=== PATIENT | female | born 1995 | race Hispanic/Latino ===

== ENCOUNTER 2018-06-08 04:01 | Observation (INO) | payer BC ==
[2018-06-08] MEDS ORDERED: MORPHINE 4 MG/ML SYR ONE (04:50)
[2018-06-08] MEDS ORDERED: ONDANSETRON 4 MG/2 ML VIAL ONE ×2 (04:51→12:15)
[2018-06-08] MEDS ORDERED: NA CHLORIDE 0.9% 1,000 ML ONE (04:51)
[2018-06-08 05:13] LABS: Absolute Lymphocytes (CBC) 3.6 K/uL (0.7-4.9); Absolute Monocytes 0.8 K/uL (0.1-1.3); Absolute Neutrophil 8.9 K/uL (1.8-8.0); Basophils % 0.4 % (0-1.3); Eosinophils % 1.8 % (0-4.4); Hematocrit 42.1 % (36.0-45.0); Lymphocytes % 26.5 % (15.3-44.8); Monocytes % 6.2 % (3.3-12.3); RBC Red Blood Cell Count 4.85 M/uL (3.86-4.86)
[2018-06-08 05:23] LABS: ALT/SGPT 18 U/L (12-78); AST/SGOT 10 U/L (15-37); Albumin 3.7 g/dL (3.4-5.0); Alkaline Phosphatase 58 U/L (45-117); BUN Blood Urea Nitrogen 14 mg/dL (7-18); Bicarbonate 27 mmol/L (21-32); Bilirubin Direct 0.1 mg/dL (0-0.2); Bilirubin Total 0.4 mg/dL (0.2-1.0); Glucose Level 102 mg/dL (74-106); Lipase 205 U/L (73-393); Potassium 3.5 mmol/L (3.5-5.1); Protein, Total 7.4 g/dL (6.4-8.2); Sodium Level 141 mmol/L (136-145)
--- NOTE | 2018-06-08 06:05 | ER ---
Nurse's Notes [facility] Name: Mia Jauregui Age: 22 yrs Sex: Female : 1995 Arrival Date: 06/08/2018 Time: 04:01 Bed 6 Private MD: Diagnosis: Acute right upper quadrant pain. Leukocytosis Presentation: 06/08 04:13 Presenting complaint: Patient states: "I got a pain in my back that woke me up about an lp1 hour ago"; Patient states pain to epigastric area with radiation to back, with nausea; Denies fever, vomiting, diarrhea. Transition of care: patient was not received from another setting of care. Onset of symptoms was June 08, 2018 at 03:00. Risk Assessment: Do you want to hurt yourself or someone else? Patient reports no desire to harm self or others. Initial Sepsis Screen: Does the patient meet any 2 criteria? No. Patient's initial sepsis screen is negative. Does the patient have a suspected source of infection? No. Patient's initial sepsis screen is negative. Care prior to arrival: None. 04:13 Method Of Arrival: Ambulatory lp1 04:13 Acuity: SHENA 3 lp1 HEALTH CARE MARKETING MANAGER: 04:17 LMP 05/04/2018 lp1 Historical: - Allergies: 04:20 Iodine; lp1 04:20 Ceclor; lp1 04:21 IV contrast; lp1 - Home Meds: 04:20 phentermine oral oral [Active]; lp1 - PMHx: 04:20 None; lp1 - PSHx: 04:20 Tonsillectomy; lp1 - Immunization history:: Adult Immunizations up to date. - Social history:: Smoking status: Patient uses tobacco products, denies chronic smoking, but will smoke occasionally. - Ebola Screening: : No symptoms or risks identified at this time. Screenin:20 Abuse screen: Denies threats or abuse. Denies injuries from another. Nutritional ed1 screening: No deficits noted. Tuberculosis screening: No symptoms or risk factors identified. Fall Risk None identified. Assessment: 04:20 General: Appears uncomfortable, Behavior is calm, cooperative. Pain: Complains of pain ed1 in epigastric area Pain radiates to back Pain currently is 8 out of 10 on a pain scale. Quality of pain is described as sharp, Pain began 2 hours ago. Is episodic, lasting a few minutes. Neuro: Level of Consciousness is awake, alert, obeys commands, Oriented to person, place, time, situation, Cafeteria Manager are equal bilaterally Moves all extremities. Full function Gait is steady, Speech is normal. Cardiovascular: Denies chest pain, Heart tones S1 S2 present. Respiratory: Airway is patent Respiratory effort is even, unlabored, Respiratory pattern is regular, symmetrical, Breath sounds are clear bilaterally. GI: Abdomen is non-distended, Bowel sounds present X 4 quads. Abd is soft and non tender X 4 quads. Reports upper abdominal pain, nausea. : No signs and/or symptoms were reported regarding the genitourinary system. EENT: No signs and/or symptoms were reported regarding the EENT system. Derm: Skin is intact, is healthy with good turgor, Skin is dry, Skin is normal, Skin temperature is warm. Musculoskeletal: Circulation, motion, and sensation intact. 05:39 Reassessment: Patient appears in no apparent distress at this time. Patient and/or ed1 family updated on plan of care and expected duration. Pain level reassessed. Patient is alert, oriented x 3, equal unlabored respirations, skin warm/dry/pink. Patient states feeling better. Patient states symptoms have improved. 07:55 Reassessment: Nurse unable to take report at this time. sv 08:05 Reassessment: Patient appears in no apparent distress at this time. Patient and/or ph family updated on plan of care and expected duration. Pain level reassessed. Patient is alert, oriented x 3, equal unlabored respirations, skin warm/dry/pink. Pt resting quietly at this time, denies pain or nausea, family at bedside, VSS. Vital Signs: 04:17 BP 114 / 76; Pulse 87; Resp 16; Temp 97.7(O); Pulse Ox 99% on R/A; Weight 102.06 kg; lp1 Height 5 ft. 3 in. (160.02 cm); Pain 8/10; 05:39 BP 109 / 71; Pulse 75; Resp 17; Pulse Ox 100% on R/A; Pain 5/10; ed1 04:17 Body Mass Index 39.86 (102.06 kg, 160.02 cm) lp1 ED Course: 04:01 Patient arrived in ED. am2 04:02 Asha MasseyJUSTINE is Primary Nurse. ed1 04:16 Jorge Dozier MD is Attending Physician. pkl 04:17 Triage completed. lp1 04:17 Arm band placed on right wrist. lp1 04:20 Patient has correct armband on for positive identification. Placed in gown. Bed in low ed1 position. Call light in reach. Side rails up X 1. Pulse ox on. NIBP on. Warm blanket given. 04:30 Inserted Missed attempt(s): 20 gauge Bleeding controlled, band aid applied, catheter ag4 tip intact. 04:37 Missed attempt(s): 22 gauge in right antecubital area. Bleeding controlled, band aid ed1 applied, catheter tip intact. 04:45 Initial lab(s) drawn, by ED staff, sent to lab. Inserted saline lock: 20 gauge in left ed1 antecubital area, using aseptic technique. Blood collected. 06:02 Luiz Bonner MD is Hospitalizing Provider. pkl 06:54 US Abdomen Limited In Process Unspecified. EDMS 08:01 No provider procedures requiring assistance completed. Patient admitted, IV remains in sv place. intact. Administered Medications: 05:03 Drug: NS 0.9% 1000 ml Route: IV; Rate: 1000 ml; Site: left antecubital; ed1 08:05 Follow up: Response: No adverse reaction; IV Status: Completed infusion ph 05:04 Drug: morphine 4 mg Route: IVP; Site: left antecubital; ed1 05:40 Follow up: Response: No adverse reaction; Pain is decreased ed1 05:04 Drug: Zofran 4 mg Route: IVP; Site: left antecubital; ed1 05:41 Follow up: Response: No adverse reaction; Nausea is decreased ed1 08:00 Drug: Cipro 400 mg Volume: 200 ml; Route: IVPB; Infused Over: 60 mins; Site: right sv antecubital; 08:00 Drug: Flagyl 500 mg Volume: 100 ml; Route: IVPB; Rate: 200 ml/hr; Infused Over: 30 sv mins; Site: right antecubital; Outcome: 06:03 Decision to Hospitalize by Provider. pkl 08:30 Patient left the ED. sv Signatures: Dispatcher [employer] EDKS Keyana Beltran RN RN Jorge Dozier MD MD pkl Asha Massey RN RN ed1 Bella Klein, RN RN lp1 Hannah Del Cid, RN RN ph Medhat, Raquel pratt2 Deven, iWlfredo ag4
--- NOTE | 2018-06-08 06:05 | EDPHYS ---
Physician Documentation [facility] Name: Mia Jauregui Age: 22 yrs Sex: Female : 1995 Arrival Date: 06/08/2018 Time: 04:01 Bed 6 Private MD: ED Physician Jorge Dozier HPI: 06/08 04:26 This 22 yrs old Female presents to ER via Ambulatory with complaints of Flank pkl Pain, Back Pain. 04:26 The patient presents with abdominal pain in the right upper quadrant. Onset: The pkl symptoms/episode began/occurred just prior to arrival, 1 hour(s) ago. The symptoms radiate to back. Associated signs and symptoms: Pertinent positives: nausea. The patient has not experienced similar symptoms in the past. CHIEF WARDEN: 04:17 LMP 05/04/2018 lp1 Historical: - Allergies: 04:20 Iodine; lp1 04:20 Ceclor; lp1 04:21 IV contrast; lp1 - Home Meds: 04:20 phentermine oral oral [Active]; lp1 - PMHx: 04:20 None; lp1 - PSHx: 04:20 Tonsillectomy; lp1 - Immunization history:: Adult Immunizations up to date. - Social history:: Smoking status: Patient uses tobacco products, denies chronic smoking, but will smoke occasionally. - Ebola Screening: : No symptoms or risks identified at this time. ROS: 04:26 Eyes: Negative for injury, pain, redness, and discharge, ENT: Negative for injury, pkl pain, and discharge, Neck: Negative for injury, pain, and swelling, Cardiovascular: Negative for chest pain, palpitations, and edema, Respiratory: Negative for shortness of breath, cough, wheezing, and pleuritic chest pain. 04:26 Abdomen/GI: Positive for abdominal pain, nausea, of the right upper quadrant. 04:26 Back: Positive for pain at rest. 04:26 : Negative for urinary symptoms. 04:26 MS/extremity: Negative for acute changes. 04:26 Skin: Negative for rash. 04:26 Neuro: Negative for altered mental status. Exam: 04:26 Head/Face: Normocephalic, atraumatic. Eyes: Pupils equal round and reactive to light, pkl extra-ocular motions intact. Lids and lashes normal. Conjunctiva and sclera are non-icteric and not injected. Cornea within normal limits. Periorbital areas with no swelling, redness, or edema. ENT: Nares patent. No nasal discharge, no septal abnormalities noted. Tympanic membranes are normal and external auditory canals are clear. Oropharynx with no redness, swelling, or masses, exudates, or evidence of obstruction, uvula midline. Mucous membranes moist. Neck: Trachea midline, no thyromegaly or masses palpated, and no cervical lymphadenopathy. Supple, full range of motion without nuchal rigidity, or vertebral point tenderness. No Meningismus. Chest/axilla: Normal chest wall appearance and motion. Nontender with no deformity. No lesions are appreciated. Cardiovascular: Regular rate and rhythm with a normal S1 and S2. No gallops, murmurs, or rubs. Normal PMI, no JVD. No pulse deficits. Respiratory: Lungs have equal breath sounds bilaterally, clear to auscultation and percussion. No rales, rhonchi or wheezes noted. No increased work of breathing, no retractions or nasal flaring. 04:26 Abdomen/GI: Bowel sounds: normal, Palpation: soft, mild abdominal tenderness, in the right upper quadrant. 04:26 Back: Exam negative for acute changes. 04:26 : Exam negative for acute changes. 04:26 Musculoskeletal/extremity: Exam is negative for acute changes. 04:26 Skin: Exam negative for rash. 04:26 Neuro: Orientation: is normal, Mentation: is normal, Cranial nerves: grossly normal, Motor: is normal. Vital Signs: 04:17 BP 114 / 76; Pulse 87; Resp 16; Temp 97.7(O); Pulse Ox 99% on R/A; Weight 102.06 kg; lp1 Height 5 ft. 3 in. (160.02 cm); Pain 8/10; 05:39 BP 109 / 71; Pulse 75; Resp 17; Pulse Ox 100% on R/A; Pain 5/10; ed1 04:17 Body Mass Index 39.86 (102.06 kg, 160.02 cm) lp1 MDM: 04:16 Patient medically screened. pkl 06:02 Data reviewed: vital signs, nurses notes, lab test result(s), radiologic studies. pk 06/08 04:25 Order name: Basic Metabolic Panel; Complete Time: 05:27 pk 06/08 04:25 Order name: CBC with Diff; Complete Time: 05:27 pkl 06/08 04:25 Order name: Creatinine for Radiology; Complete Time: 05: pkl 06/08 04:25 Order name: Hepatic Function; Complete Time: 05:27 pkl 06/08 04:25 Order name: Lipase; Complete Time: 05:27 pkl 06/08 05:39 Order name: US Abdomen Limited pkl 06/08 04:25 Order name: IV Saline Lock; Complete Time: 05:05 pkl 06/08 04:25 Order name: Labs collected and sent; Complete Time: 05:05 pkl Administered Medications: 05:03 Drug: NS 0.9% 1000 ml Route: IV; Rate: 1000 ml; Site: left antecubital; ed1 08:05 Follow up: Response: No adverse reaction; IV Status: Completed infusion ph 05:04 Drug: morphine 4 mg Route: IVP; Site: left antecubital; ed1 05:40 Follow up: Response: No adverse reaction; Pain is decreased ed1 05:04 Drug: Zofran 4 mg Route: IVP; Site: left antecubital; ed1 05:41 Follow up: Response: No adverse reaction; Nausea is decreased ed1 08:00 Drug: Cipro 400 mg Volume: 200 ml; Route: IVPB; Infused Over: 60 mins; Site: right sv antecubital; 08:00 Drug: Flagyl 500 mg Volume: 100 ml; Route: IVPB; Rate: 200 ml/hr; Infused Over: 30 sv mins; Site: right antecubital; Disposition: 06/08/18 06:03 Hospitalization ordered by Luiz Bonner for Observation. Preliminary diagnosis is Acute right upper quadrant pain. Leukocytosis. - Bed requested for Telemetry/MedSurg (observation). - Status is Observation. sv - Condition is Stable. - Problem is new. - Symptoms are unchanged. UTI on Admission? No Signatures: Dispatcher [employer] Keyana Antonio RN RN sv Webb, Martha RN JUSTINE Jorge Dozier MD MD pkAsha Sommers RN RN ed1 Bella Klein RN RN lp1 Hannah Del Cid RN ph Corrections: (The following items were deleted from the chart) 06:17 06:03 Hospitalization Ordered by Luiz Bonner MD for Observation. Preliminary mw diagnosis is Acute right upper quadrant pain. Leukocytosis. Bed requested for Telemetry/MedSurg (observation). Status is Observation. Condition is Stable. Problem is new. Symptoms are unchanged. UTI on Admission? No. pkl 08:30 06:17 06/08/2018 06:03 Hospitalization Ordered by Luiz Bonner MD for Observation. sv Preliminary diagnosis is Acute right upper quadrant pain. Leukocytosis. Bed requested for Telemetry/MedSurg (observation). Status is Observation. Condition is Stable. Problem is new. Symptoms are unchanged. UTI on Admission? No. mw
[2018-06-08] MEDS ORDERED: MORPHINE 4 MG/ML SYR IV PRN (06:54)
[2018-06-08] MEDS ORDERED: ONDANSETRON 4 MG/2 ML VIAL IV PRN (06:54)
--- NOTE | 2018-06-08 08:03 | RAD REPORT ---
EXAM DESCRIPTION: US - Abdomen Exam Limited - 06/08/2018 6:53 am CLINICAL HISTORY: Abdominal pain. COMPARISON: None. FINDINGS: Multiple gallstones. The gallbladder wall is not thickened. Common bile duct measures 7 millimeters IMPRESSION: Cholelithiasis without evidence cholecystitis Mild dilatation of the common bile duct may be secondary to a nonvisualized stone within the duct
[2018-06-08] MEDS ORDERED: CIPROFLOXACIN 400mg IV 400 MG/200 ML BAG IV ONE (08:08)
[2018-06-08] MEDS ORDERED: METRONIDAZOLE 500mg IVPB 500 MG/100 ML BAG IV ONE (08:08)
[2018-06-08] MEDS: D5 0.45 NS 1,000 ML IV SCH ×2 (08:56→14:11)
[2018-06-08 09:54] LABS: Urine Appearance CLEAR; Urine Bilirubin NEGATIVE (NEG); Urine Blood NEGATIVE (NEG); Urine Color YELLOW; Urine Glucose NEGATIVE (NEG); Urine Protein NEGATIVE (NEG); Urine Specific Gravity >=1.030 (1.005-1.030); Urine pH 5.5 (5.0-7.0)
[2018-06-08 09:59] LABS: Urine Microscopic Reflex NO UMIC
[2018-06-08] MEDS ORDERED: BUPIVACAINE 0.5% PF 10 ML VIAL ONE (11:20)
[2018-06-08] MEDS ORDERED: Ringers Lactate 1,000 ML IV ONE (12:00)
[2018-06-08 12:06] LABS: Specific Gravity >= 1.030 (1.005-1.030)
[2018-06-08] MEDS ORDERED: PROPOFOL 200 MG/20 ML VIAL IV ONE (12:13)
[2018-06-08] MEDS ORDERED: MIDAZOLAM HCL 2 MG/2 ML INJ ONE (12:14)
[2018-06-08] MEDS ORDERED: FENTANYL CITR 100 MCG/2 ML ONE (12:14)
[2018-06-08] MEDS ORDERED: LIDOCAINE 2% MPF 5 ML VIAL ONE (12:15)
[2018-06-08] MEDS ORDERED: ROCURONIUM 50 MG/5 ML VIAL IV ONE (12:15)
--- NOTE | 2018-06-08 12:57 | P.HP ---
Date of Service: 06/08/18 PC: This 22-year-old female presents emergency room with severe right upper quadrant abdominal pain for diagnosis and treatment. HPC: Patient had sudden onset of severe right upper quadrant abdominal pain, radiating into her back, since early yesterday evening. Pain was unrelenting. PMH: Negative PSHx: Denies any prior surgeries SOC: Allergic to iodine, takes phentermine SYS REVIEW: No cough, wheeze, shortness of breath. No chest pain or palpitations. No urinary complaints. Otherwise a healthy young lady O/E awake alert vital signs are stable HEENT: Not jaundice Chest: Clear ABD: Soft nontender at the moment LOCO: Intact DATA: Has documented gallstones IMPRESSION: Cholelithiasis, biliary colic PLAN: I have discussed the surgical options with the patient. She was brought down to the operating room will we had intended on doing a laparoscopic cholecystectomy with intraoperative cholangiogram. The risks of the surgeries have been discussed with the patient mainly injury to bile ducts blood vessels and intestines possible need for an open and/or further surgeries and procedures. When being evaluated by anesthesia, it was learned that she was on phentermine. On further dowel system is recommended that patient has be taken off these drugs for least 2 weeks prior to any acute elective surgery as there is a possibility of sudden on induction. After discussion with the patient her surgery has been postponed. We will reschedule for approximately 2 weeks time. In the meantime she will be discharge, both Hernan low-fat diet if possible. Should her pain recur she is to return turned back to the emergency room. She understands a.m. all not happy that she has to have her surgery postponed understands the reasoning at this time.
== END 2018-06-08 15:30 | disposition home or self-care (01) ==
LOC: ER 04:01 → ERHOLD 06:55 → INTOOBSV 06:55 → 2ND 08:18
PROVIDERS: ADMIT Surgery; ATTEND Surgery
DX: K80.20 Calculus of gallbladder without cholecystitis without obstruction (principal)
CPT/HCPCS: 36415; 76705; 80048; 80076; 81003; 81025; 83690; 85025; 99284; G0378; J0744; J2250; J2405; J2704; J3010; J7030

== ENCOUNTER 2018-06-10 11:14 | Emergency (ER) | payer BC ==
[2018-06-10 13:00] LABS: Urine Blood NEGATIVE (NEG); Urine Glucose NEGATIVE (NEG); Urine Protein NEGATIVE (NEG); Urine pH 6.5 (5.0-7.0)
[2018-06-10 13:35] LABS: Absolute Lymphocytes (CBC) 4.1 K/uL (0.7-4.9); Absolute Monocytes 0.7 K/uL (0.1-1.3); Absolute Neutrophil 7.3 K/uL (1.8-8.0); Basophils % 0.5 % (0-1.3); Eosinophils % 3.8 % (0-4.4); Hematocrit 45.3 % (36.0-45.0); Lymphocytes % 32.3 % (15.3-44.8); MPV 9.2 fL (7.6-11.3); Monocytes % 5.7 % (3.3-12.3); RBC Red Blood Cell Count 5.24 M/uL (3.86-4.86)
[2018-06-10 13:51] LABS: ALT/SGPT 22 U/L (12-78); AST/SGOT 12 U/L (15-37); Albumin 3.9 g/dL (3.4-5.0); Alkaline Phosphatase 72 U/L (45-117); BUN Blood Urea Nitrogen 8 mg/dL (7-18); Bicarbonate 27 mmol/L (21-32); Bilirubin Direct < 0.1 mg/dL (0-0.2); Bilirubin Total 0.3 mg/dL (0.2-1.0); Glucose Level 82 mg/dL (74-106); Lipase 226 U/L (73-393); Potassium 3.7 mmol/L (3.5-5.1); Protein, Total 8.3 g/dL (6.4-8.2); Sodium Level 138 mmol/L (136-145)
--- NOTE | 2018-06-10 14:11 | RAD REPORT ---
EXAM DESCRIPTION: US - Abdomen Exam Limited - 06/10/2018 2:04 pm CLINICAL HISTORY: Abdominal pain. COMPARISON: June 08, 2018 FINDINGS: Tiny echogenic structures are present within the gallbladder. Definite shadowing is not se en. Gallbladder wall is not thickened. Biliary tree is normal caliber IMPRESSION: Tiny echogenic structures within the gallbladder could either represent stones which did not shadow secondary to a combination of their small size and technical factors or sludge
[2018-06-10] MEDS ORDERED: KETOROLAC 30 MG/ML INJ ONE (15:06)
--- NOTE | 2018-06-10 15:29 | ER ---
Nurse's Notes [facility] Name: Mia Jauregui Age: 22 yrs Sex: Female : 1995 Arrival Date: 06/10/2018 Time: 11:14 Bed 2 Private MD: Diagnosis: Epigastric pain Presentation: 06/10 11:22 Presenting complaint: Patient states: i came in Friday with my back hurting but when i tw2 press on my stomach hurts, then this morning i am having pain again on my right side, they said i need to have my gall bladder removed, i saw Dr. Small and he said he couldn't do the surgery because i was taking phentermine and that if i felt back to come back here. Transition of care: patient was not received from another setting of care. Onset of symptoms was June 10, 2018. Risk Assessment: Do you want to hurt yourself or someone else? Patient reports no desire to harm self or others. Initial Sepsis Screen: Does the patient meet any 2 criteria? No. Patient's initial sepsis screen is negative. Does the patient have a suspected source of infection? No. Patient's initial sepsis screen is negative. Care prior to arrival: None. 11:22 Method Of Arrival: Ambulatory tw2 11:22 Acuity: SHENA 3 tw2 Triage Assessment: 11:26 General: Appears in no apparent distress. Behavior is calm, cooperative, appropriate tw2 for age. Pain: Complains of pain in right upper quadrant and right lower quadrant. GI: Reports lower abdominal pain, upper abdominal pain, nausea. DIRECTOR GLOBAL: 11:25 LMP 05/04/2018 tw2 Historical: - Allergies: 11:25 IV contrast; tw2 11:25 Iodine; tw2 11:25 Ceclor; tw2 - Home Meds: 11:25 phentermine Oral (Last Dose: 06/05/2018 20:00) [Active]; tw2 - PSHx: 11:25 Tonsillectomy; tw2 - Immunization history:: Adult Immunizations. - Social history:: Smoking status: Patient uses tobacco products, 3 cigarettes a week. - Ebola Screening: : Patient denies travel to an Ebola-affected area in the 21 days before illness onset. Screenin:38 Abuse screen: Denies threats or abuse. Denies injuries from another. Nutritional aj1 screening: No deficits noted. Tuberculosis screening: No symptoms or risk factors identified. 15:45 Fall Risk None identified. aj1 Assessment: 11:38 General: Appears in no apparent distress. uncomfortable, Behavior is calm, cooperative, aj1 appropriate for age. Pain: Complains of pain in right upper quadrant Pain radiates to back Pain currently is 6 out of 10 on a pain scale. Pain began 2-3 days ago. Neuro: Level of Consciousness is awake, alert, obeys commands, Oriented to person, place, time, situation. Cardiovascular: Patient's skin is warm and dry. Respiratory: Airway is patent Respiratory effort is even, unlabored, Respiratory pattern is regular, symmetrical. GI: Abdomen is non-distended, Bowel sounds present X 4 quads. Abd is soft X 4 quads Abdomen is tender to palpation in right upper quadrant Reports nausea, Patient currently denies diarrhea, vomiting. : No signs and/or symptoms were reported regarding the genitourinary system. EENT: No signs and/or symptoms were reported regarding the EENT system. Derm: No signs and/or symptoms reported regarding the dermatologic system. Skin is pink, warm \T\ dry. normal. Musculoskeletal: No signs and/or symptoms reported regarding the musculoskeletal system. Circulation, motion, and sensation intact. 12:30 Reassessment: Patient appears in no apparent distress at this time. No changes from aj1 previously documented assessment. Patient and/or family updated on plan of care and expected duration. Pain level reassessed. Patient is alert, oriented x 3, equal unlabored respirations, skin warm/dry/pink. 13:33 Reassessment: Patient appears in no apparent distress at this time. No changes from aj1 previously documented assessment. Patient and/or family updated on plan of care and expected duration. Pain level reassessed. Patient is alert, oriented x 3, equal unlabored respirations, skin warm/dry/pink. 15:00 Reassessment: Patient appears in no apparent distress at this time. No changes from aj1 previously documented assessment. Patient and/or family updated on plan of care and expected duration. Pain level reassessed. Patient is alert, oriented x 3, equal unlabored respirations, skin warm/dry/pink. 15:44 Reassessment: Patient appears in no apparent distress at this time. No changes from aj1 previously documented assessment. Patient and/or family updated on plan of care and expected duration. Pain level reassessed. Patient is alert, oriented x 3, equal unlabored respirations, skin warm/dry/pink. Vital Signs: 11:25 BP 108 / 72; Pulse 83; Resp 17; Temp 97.7(TE); Pulse Ox 99% on R/A; Weight 102.06 kg tw2 (R); Height 5 ft. 3 in. (160.02 cm); Pain 6/10; 13:38 BP 103 / 56; Pulse 70; Resp 18; Pulse Ox 100% on R/A; aj1 11:25 Body Mass Index 39.86 (102.06 kg, 160.02 cm) tw2 ED Course: 11:14 Patient arrived in ED. rg4 11:24 Triage completed. tw2 11:24 Arm band placed on. tw2 11:28 Ramila Handy, RN is Primary Nurse. aj1 11:37 Artur Agee PA is PHCP. [facility] 11:37 Sawyer Lam MD is Attending Physician. [facility] 11:38 Patient has correct armband on for positive identification. Bed in low position. Call aj1 light in reach. Side rails up X 1. 11:38 No provider procedures requiring assistance completed. aj1 14:04 US Abdomen Limited In Process Unspecified. EDMS 15:28 Link Martin MD is Referral Physician. m 15:45 IV discontinued, intact, bleeding controlled, No redness/swelling at site. Pressure aj1 dressing applied. Administered Medications: 15:02 Drug: Ketorolac 30 mg Route: IVP; Site: left upper arm; aj1 15:30 Follow up: Response: No adverse reaction; Pain is decreased aj1 Outcome: 15:28 Discharge ordered by . jm 15:46 Discharged to home ambulatory. aj1 15:46 Condition: good 15:46 Discharge instructions given to patient, Instructed on discharge instructions, follow up and referral plans. medication usage, Demonstrated understanding of instructions, follow-up care, medications, Prescriptions given X 2. 15:47 Patient left the ED. aj1 Signatures: Dispatcher [employer] EDMS Ramila Handy, RN RN aj1 Artur Agee PA PA jmm Wise, Tara, RN RN tw2 Maricel Rincon rg4
--- NOTE | 2018-06-10 15:30 | EDPHYS ---
Physician Documentation [facility] Name: Mia Jauregui Age: 22 yrs Sex: Female : 1995 Arrival Date: 06/10/2018 Time: 11:14 Bed 2 Private MD: ED Physician Sawyer Lam HPI: 06/10 11:59 This 22 yrs old Female presents to ER via Ambulatory with complaints of jmm Abdominal Pain, Flank Pain, Back Pain. 11:59 The patient presents with abdominal pain in the epigastric area. Onset: The jmm symptoms/episode began/occurred gradually, 3 day(s) ago. The symptoms radiate to right back. Associated signs and symptoms: Pertinent positives: nausea. This is a 22 year old female with no chronic medical conditions that presents to the ED with complaints of right upper abdominal pain which radiates to her back. Patient states she was admitted 2 days ago but left. Patient states she has an appointment scheduled with Dr. Martin on Friday for further evaluation. Denies fever. . [employer]: 11:25 LMP 05/04/2018 tw2 Historical: - Allergies: 11:25 IV contrast; tw2 11:25 Iodine; tw2 11:25 Ceclor; tw2 - Home Meds: 11:25 phentermine Oral (Last Dose: 06/05/2018 20:00) [Active]; tw2 - PSHx: 11:25 Tonsillectomy; tw2 - Immunization history:: Adult Immunizations. - Social history:: Smoking status: Patient uses tobacco products, 3 cigarettes a week. - Ebola Screening: : Patient denies travel to an Ebola-affected area in the 21 days before illness onset. ROS: 11:59 Constitutional: Negative for fever, chills, and weight loss, Cardiovascular: Negative jmm for chest pain, palpitations, and edema, Respiratory: Negative for shortness of breath, cough, wheezing, and pleuritic chest pain. 11:59 Abdomen/GI: Positive for abdominal pain. 11:59 Back: Positive for radiated pain. 11:59 All other systems are negative. Exam: 11:59 Constitutional: This is a well developed, well nourished patient who is awake, alert, jmm and in no acute distress. Head/Face: atraumatic. Eyes: EOMI, no conjunctival erythema appreciated ENT: Moist Mucus Membranes Neck: Trachea midline, Supple Chest/axilla: Normal chest wall appearance and motion. Cardiovascular: Regular rate and rhythm. No edema appreciated Respiratory: Normal respirations, no respiratory distress appreciated 11:59 Back: Normal ROM Skin: General appearance color normal MS/ Extremity: Moves all extremities, no obvious deformities appreciated, no edema noted to the lower extremities Neuro: Awake and alert, normal gait Psych: Behavior is normal, Mood is normal, Patient is cooperative and pleasant 11:59 Abdomen/GI: Inspection: abdomen appears normal, Bowel sounds: normal, Palpation: soft, moderate abdominal tenderness, in the right upper quadrant. Vital Signs: 11:25 BP 108 / 72; Pulse 83; Resp 17; Temp 97.7(TE); Pulse Ox 99% on R/A; Weight 102.06 kg tw2 (R); Height 5 ft. 3 in. (160.02 cm); Pain 6/10; 13:38 BP 103 / 56; Pulse 70; Resp 18; Pulse Ox 100% on R/A; aj1 11:25 Body Mass Index 39.86 (102.06 kg, 160.02 cm) tw2 MDM: 11:59 Patient medically screened. [facility] 15:13 Data reviewed: vital signs, nurses notes. Counseling: I had a detailed discussion with [facility] the patient and/or guardian regarding: the historical points, exam findings, and any diagnostic results supporting the discharge/admit diagnosis, lab results, radiology results, the need for outpatient follow up, to return to the emergency department if symptoms worsen or persist or if there are any questions or concerns that arise at home. 15:13 ED course: I refused previous US. LFT's normal. Patient's symptoms have improved. [facility] Patient is alert and non toxic in appearance. Patient given return precautions. Patient understood and agrees with the plan of care. . 15:28 Data reviewed: lab test result(s), radiologic studies, ultrasound. Response to [facility] treatment: the patient's symptoms have markedly improved after treatment, and as a result, I will discharge patient. 06/10 11:59 Order name: Basic Metabolic Panel; Complete Time: 14: [facility] 06/10 11:59 Order name: CBC with Diff; Complete Time: 14: [facility] 06/10 11:59 Order name: Creatinine for Radiology; Complete Time: 14: [facility] 06/10 11:59 Order name: Hepatic Function; Complete Time: 14:01 [facility] 06/10 11:59 Order name: Lipase; Complete Time: 14:01 [facility] 06/10 12:09 Order name: Urine Dipstick--Ancillary (enter results); Complete Time: 13:30 bd 06/10 11:59 Order name: IV Saline Lock; Complete Time: 13:25 [facility] 06/10 11:59 Order name: Labs collected and sent; Complete Time: 13:25 [facility] 06/10 12:09 Order name: Urine --Ancillary (enter results); Complete Time: 13:30 bd 06/10 13:30 Order name: US Abdomen Limited; Complete Time: 14:24 [facility] Administered Medications: 15:02 Drug: Ketorolac 30 mg Route: IVP; Site: left upper arm; aj1 15:30 Follow up: Response: No adverse reaction; Pain is decreased aj1 Disposition: 18:51 Co-signature as Attending Physician, Sawyer Lam MD Available for consultation at ps1 all times. . Disposition: 06/10/18 15:28 Discharged to Home. Impression: Epigastric pain. - Condition is Stable. - Discharge Instructions: Abdominal Pain, Adult. - Prescriptions for Zofran ODT 4 mg Oral tablet,disintegrating - place 1 tablet by TRANSLINGUAL route every 4-6 hours; 20 tablet. Bentyl 20 mg Oral Tablet - take 2 tablet by ORAL route every 6 hours As needed; 40 tablet. - Medication Reconciliation Form, Thank You Letter, Antibiotic Education, Prescription Opioid Use form. - Follow up: Link Martin MD; When: 2 - 3 days; Reason: Recheck today's complaints, Continuance of care, Re-evaluation by your physician. Signatures: Dispatcher [employer] EDRamila Hanson RN RN aj1 Artur Agee PA PA jmm Wise, Tara, RN RN tw2 Sawyer Lam MD MD ps1 Corrections: (The following items were deleted from the chart) 15:47 15:28 06/10/2018 15:28 Discharged to Home. Impression: Epigastric pain. Condition is aj1 Stable. Forms are Medication Reconciliation Form, Thank You Letter, Antibiotic Education, Prescription Opioid Use. Follow up: Link Martin; When: 2 - 3 days; Reason: Recheck today's complaints, Continuance of care, Re-evaluation by your physician. tatumm
== END 2018-06-10 15:47 | disposition home or self-care (01) ==
LOC: ER 11:14
DX: R10.13 Epigastric pain (principal); Z72.0 Tobacco use; Z88.8 Allergy status to other drugs, medicaments and biological substances; Z91.041 Radiographic dye allergy status; Z91.048 Other nonmedicinal substance allergy status
CPT/HCPCS: 36415; 76705; 80048; 80076; 81003; 81025; 83690; 85025; 96374; 99283

== ENCOUNTER 2018-06-17 04:12 | Emergency (ER) | payer BC ==
[2018-06-17] MEDS ORDERED: MORPHINE 4 MG/ML SYR ONE (04:39)
[2018-06-17] MEDS ORDERED: ONDANSETRON 4 MG/2 ML VIAL ONE (04:39)
[2018-06-17] MEDS ORDERED: NA CHLORIDE 0.9% 1,000 ML ONE (04:40)
[2018-06-17 05:25] LABS: Absolute Monocytes 0.8 K/uL (0.1-1.3); Absolute Neutrophil 8.9 K/uL (1.8-8.0); Basophils % 0.5 % (0-1.3); Eosinophils % 3.4 % (0-4.4); Hematocrit 41.4 % (36.0-45.0); Lymphocytes % 22.6 % (15.3-44.8); MPV 9.2 fL (7.6-11.3); Monocytes % 6.2 % (3.3-12.3); RBC Red Blood Cell Count 4.76 M/uL (3.86-4.86)
[2018-06-17 06:20] LABS: ALT/SGPT 18 U/L (12-78); AST/SGOT 27 U/L (15-37); Albumin 3.1 g/dL (3.4-5.0); Alkaline Phosphatase 53 U/L (45-117); BUN Blood Urea Nitrogen 11 mg/dL (7-18); Bicarbonate 26 mmol/L (21-32); Bilirubin Direct < 0.1 mg/dL (0-0.2); Bilirubin Total 0.2 mg/dL (0.2-1.0); Glucose Level 101 mg/dL (74-106); Lipase 201 U/L (73-393); Potassium 3.5 mmol/L (3.5-5.1); Protein, Total 6.6 g/dL (6.4-8.2); Sodium Level 146 mmol/L (136-145)
--- NOTE | 2018-06-17 06:44 | EDPHYS ---
Physician Documentation [facility] Name: Mia Jauregui Age: 22 yrs Sex: Female : 1995 Arrival Date: 06/17/2018 Time: 04:15 Bed 5 Private MD: ED Physician Abdias Pathak HPI: 06/17 06:08 This 22 yrs old Female presents to ER via Ambulatory with complaints of tw4 Abdominal Pain. 06:08 The patient presents with abdominal pain. The patient presents with abdominal pain in tw4 the upper abdomen. Onset: The symptoms/episode began/occurred today. The symptoms do not radiate. Associated signs and symptoms: none. The symptoms are described as dull. Modifying factors: The symptoms are alleviated by nothing, the symptoms are aggravated by alcohol. The patient has experienced similar episodes in the past, a few times. [employer] ME[employer]IC: 04:29 LMP 06/04/2018 bb Historical: - Allergies: 04:29 Ceclor; bb 04:29 Iodine; bb 04:29 IV contrast; bb - Home Meds: 04:29 None [Active]; bb - PMHx: 04:29 None; bb - PSHx: 04:29 Tonsillectomy; bb - Immunization history:: Adult Immunizations up to date. - Social history:: Smoking status: Patient/guardian denies using tobacco, Patient uses alcohol, occasionally. Patient/guardian denies using street drugs. - Ebola Screening: : No symptoms or risks identified at this time. ROS: 06:08 Constitutional: Negative for fever, chills, and weight loss, Eyes: Negative for injury, tw4 pain, redness, and discharge, Cardiovascular: Negative for chest pain, palpitations, and edema, Respiratory: Negative for shortness of breath, cough, wheezing, and pleuritic chest pain, Back: Negative for injury and pain, MS/Extremity: Negative for injury and deformity, Skin: Negative for injury, rash, and discoloration, Neuro: Negative for headache, weakness, numbness, tingling, and seizure. 06:08 Abdomen/GI: Positive for abdominal pain, Negative for nausea and vomiting, nausea, vomiting, and diarrhea, nausea, vomiting, constipation, black/tarry stool, rectal bleeding. Exam: 06:08 Constitutional: This is a well developed, well nourished patient who is awake, alert, tw4 and in no acute distress. Head/Face: Normocephalic, atraumatic. Chest/axilla: Normal chest wall appearance and motion. Nontender with no deformity. No lesions are appreciated. Cardiovascular: Regular rate and rhythm with a normal S1 and S2. No gallops, murmurs, or rubs. Normal PMI, no JVD. No pulse deficits. Respiratory: Lungs have equal breath sounds bilaterally, clear to auscultation and percussion. No rales, rhonchi or wheezes noted. No increased work of breathing, no retractions or nasal flaring. Back: No spinal tenderness. No costovertebral tenderness. Full range of motion. MS/ Extremity: Pulses equal, no cyanosis. Neurovascular intact. Full, normal range of motion. Neuro: Awake and alert, GCS 15, oriented to person, place, time, and situation. Cranial nerves II-XII grossly intact. Motor strength 5/5 in all extremities. Sensory grossly intact. Cerebellar exam normal. Normal gait. Psych: Awake, alert, with orientation to person, place and time. Behavior, mood, and affect are within normal limits. 06:08 Abdomen/GI: Inspection: abdomen appears normal, Bowel sounds: normal, Palpation: moderate abdominal tenderness, in the right upper quadrant. Vital Signs: 04:29 BP 138 / 40; Pulse 89; Resp 18 S; Temp 98.6(O); Pulse Ox 99% on R/A; Weight 102.51 kg bb (R); Height 5 ft. 3 in. (160.02 cm) (R); Pain 10/10; 05:39 BP 107 / 69; Pulse 72; Resp 14; Temp 98.6; Pulse Ox 96% on R/A; Pain 0/10; ak1 06:02 BP 112 / 69; Pulse 70; Resp 14; Pulse Ox 96% on R/A; ak1 04:29 Body Mass Index 40.03 (102.51 kg, 160.02 cm) bb MDM: 04:19 Patient medically screened. tw4 06:08 Data reviewed: vital signs, nurses notes. tw4 06:44 Differential diagnosis: cholecystitis, Cholelithiasis, gastritis, gastroesophageal tw4 reflux disease, GI Bleed, Hepatitis, pancreatitis, Peptic Ulcer Disease, Perf. Duodenal Ulcer, Perf. Gastric Ulcer. Test interpretation: by ED physician or midlevel provider: bloodwork. Counseling: I had a detailed discussion with the patient and/or guardian regarding: the historical points, exam findings, and any diagnostic results supporting the discharge/admit diagnosis, lab results, radiology results. Special discussion: Based on the patient's Hx, exam, and Dx evaluation, there is no indication for emergent surgery or inpatient Tx. It is understood by the patient/guardian that if the Sx's persist or worsen they need to return immediately for re-evaluation. I discussed with the patient/guardian in detail that at this point there is no indication for admission to the hospital. It is understood, however, that if the symptoms persist or worsen the patient needs to return immediately for re-evaluation. ED course: Attempted to call Dr Martin several times at 0615, 0630 and 0645. no response. Pt's MRCP done yesterday was negative. Pt states she feels better and will followup with Dr Martin . 06/17 04:19 Order name: Basic Metabolic Panel; Complete Time: 06:42 06/17 06:42 Interpretation: Normal except: NA 146; CL 112. 06/17 04:19 Order name: CBC with Diff; Complete Time: 06:42 06/17 06:42 Interpretation: Normal except: WBC 13.1. 06/17 04:19 Order name: Creatinine for Radiology; Complete Time: 06:43 06/17 06:43 Interpretation: Within normal limits. 06/17 04:19 Order name: Hepatic Function; Complete Time: 06:42 06/17 06:42 Interpretation: Normal except: ALB 3.1; A/G 0.9. 06/17 04:19 Order name: Lipase; Complete Time: 06:43 06/17 06:43 Interpretation: Within normal limits: LIP 201. 06/17 06:46 Order name: Urine Dipstick--Ancillary (enter results) 2 06/17 04:19 Order name: IV Saline Lock; Complete Time: 05:01 06/17 04:19 Order name: Labs collected and sent; Complete Time: 05:01 06/17 06:46 Order name: Urine --Ancillary (enter results) 2 Administered Medications: 04:56 Drug: morphine 4 mg Route: IVP; Site: left hand; ed1 06:29 Follow up: Response: No adverse reaction; Pain is decreased ak1 04:56 Drug: Zofran 4 mg Route: IVP; Site: left hand; ed1 06:30 Follow up: Response: No adverse reaction; Nausea is decreased ak1 04:57 Drug: NS 0.9% 1000 ml Route: IV; Rate: 1 bolus; Site: left hand; ed1 06:30 Follow up: IV Status: Completed infusion; IV Intake: 1000ml ak1 Disposition: 06/17/18 06:43 Discharged to Home. Impression: Unspecified abdominal pain. - Condition is Stable. - Discharge Instructions: Abdominal Pain, Adult, Colic, Pain Without a Known Cause. - Prescriptions for Pepcid 20 mg Oral Tablet - take 1 tablet by ORAL route every 12 hours for 10 days; 20 tablet. Zofran 4 mg Oral Tablet - take 1 tablet by ORAL route every 12 hours As needed; 20 tablet. - Medication Reconciliation Form, Thank You Letter, Antibiotic Education, Prescription Opioid Use form. - Follow up: Private Physician; When: Upon discharge from the Emergency Department; Reason: If symptoms return, Recheck today's complaints, Continuance of care. Follow up: Link Martin MD; When: Today; Reason: If symptoms return, Recheck today's complaints, Continuance of care. - Problem is new. - Symptoms have improved. Signatures: Dispatcher [employer] EDMS Sofía Brasher RN RN bb Asha Massey RN RN ed1 Inocencia Brennan RN RN ak1 Abdias Pathak MD MD tw4 Corrections: (The following items were deleted from the chart) 06:43 06:43 06/17/2018 06:43 Discharged to Home. Impression: Unspecified abdominal pain. tw4 Condition is Stable. Forms are Medication Reconciliation Form, Thank You Letter, Antibiotic Education, Prescription Opioid Use. Follow up: Private Physician; When: Upon discharge from the Emergency Department; Reason: If symptoms return, Recheck today's complaints, Continuance of care. Problem is new. Symptoms have improved. tw4 07:04 06:43 06/17/2018 06:43 Discharged to Home. Impression: Unspecified abdominal pain. ak1 Condition is Stable. Forms are Medication Reconciliation Form, Thank You Letter, Antibiotic Education, Prescription Opioid Use. Follow up: Private Physician; When: Upon discharge from the Emergency Department; Reason: If symptoms return, Recheck today's complaints, Continuance of care. Follow up: Link Martin; When: Today; Reason: If symptoms return, Recheck today's complaints, Continuance of care. Problem is new. Symptoms have improved. tw4
--- NOTE | 2018-06-17 06:44 | ER ---
Nurse's Notes [facility] Name: Mia Jauregui Age: 22 yrs Sex: Female : 1995 Arrival Date: 06/17/2018 Time: 04:15 Bed 5 Private MD: Diagnosis: Unspecified abdominal pain Presentation: 06/17 04:27 Presenting complaint: Patient states: she has been worked up for her gallbladder and bb has seen Dr Martin and had an MRI but this morning at approx 0340 her abdominal and back pain became severe and she is nauseous. Transition of care: patient was not received from another setting of care. Onset of symptoms was June 17, 2018. Risk Assessment: Do you want to hurt yourself or someone else? Patient reports no desire to harm self or others. Initial Sepsis Screen: Does the patient meet any 2 criteria? No. Patient's initial sepsis screen is negative. Does the patient have a suspected source of infection? No. Patient's initial sepsis screen is negative. Care prior to arrival: None. 04:27 Method Of Arrival: Ambulatory 04:27 Acuity: SHENA 3 Triage Assessment: 04:59 General: Appears in no apparent distress. Behavior is calm, cooperative. Pain: ak1 Complains of pain in abdomen. EENT: No signs and/or symptoms were reported regarding the EENT system. Neuro: No deficits noted. Cardiovascular: No deficits noted. Respiratory: No deficits noted. GI: Abdomen is round Reports upper abdominal pain. : No signs and/or symptoms were reported regarding the genitourinary system. Derm: No signs and/or symptoms reported regarding the dermatologic system. Musculoskeletal: No signs and/or symptoms reported regarding the musculoskeletal system. RINK RAT: 04:29 LMP 06/04/2018 bb Historical: - Allergies: 04:29 Ceclor; bb 04:29 Iodine; bb 04:29 IV contrast; bb - Home Meds: 04:29 None [Active]; bb - PMHx: 04:29 None; bb - PSHx: 04:29 Tonsillectomy; bb - Immunization history:: Adult Immunizations up to date. - Social history:: Smoking status: Patient/guardian denies using tobacco, Patient uses alcohol, occasionally. Patient/guardian denies using street drugs. - Ebola Screening: : No symptoms or risks identified at this time. Screenin:00 Abuse screen: Denies threats or abuse. Denies injuries from another. Nutritional ak1 screening: No deficits noted. Tuberculosis screening: No symptoms or risk factors identified. Fall Risk None identified. Assessment: 05:00 Reassessment: Patient appears in no apparent distress at this time. No changes from ak1 previously documented assessment. Patient is alert, oriented x 3, equal unlabored respirations, skin warm/dry/pink. 05:00 GI: Abd is soft and non tender X 4 quads. ak1 05:39 Reassessment: Patient appears in no apparent distress at this time. No changes from ak1 previously documented assessment. Patient and/or family updated on plan of care and expected duration. Pain level reassessed. Patient is alert, oriented x 3, equal unlabored respirations, skin warm/dry/pink. 05:39 Reassessment: Patient states feeling better. Patient states symptoms have improved. ak1 07:02 GI: Bowel sounds present X 4 quads. ak1 Vital Signs: 04:29 BP 138 / 40; Pulse 89; Resp 18 S; Temp 98.6(O); Pulse Ox 99% on R/A; Weight 102.51 kg bb (R); Height 5 ft. 3 in. (160.02 cm) (R); Pain 10/10; 05:39 BP 107 / 69; Pulse 72; Resp 14; Temp 98.6; Pulse Ox 96% on R/A; Pain 0/10; ak1 06:02 BP 112 / 69; Pulse 70; Resp 14; Pulse Ox 96% on R/A; ak1 04:29 Body Mass Index 40.03 (102.51 kg, 160.02 cm) ED Course: 04:15 Patient arrived in ED. es 04:19 Abdias Pathak MD is Attending Physician. tw4 04:29 Triage completed. bb 04:29 Arm band placed on Patient placed in an exam room, on a stretcher, on pulse oximetry. bb Family accompanied patient. 04:58 Initial lab(s) drawn, by me, sent to lab. Inserted saline lock: 22 gauge in left hand, ak1 using aseptic technique. Blood collected. 05:00 Inocencia Brennan, RN is Primary Nurse. ak1 05:00 Patient has correct armband on for positive identification. Bed in low position. Call ak1 light in reach. Side rails up X 1. Adult w/ patient. Pulse ox on. NIBP on. 06:43 Link Martin MD is Referral Physician. tw4 07:02 No provider procedures requiring assistance completed. IV discontinued, intact, ak1 bleeding controlled, No redness/swelling at site. Pressure dressing applied. Administered Medications: 04:56 Drug: morphine 4 mg Route: IVP; Site: left hand; ed1 06:29 Follow up: Response: No adverse reaction; Pain is decreased ak1 04:56 Drug: Zofran 4 mg Route: IVP; Site: left hand; ed1 06:30 Follow up: Response: No adverse reaction; Nausea is decreased ak1 04:57 Drug: NS 0.9% 1000 ml Route: IV; Rate: 1 bolus; Site: left hand; ed1 06:30 Follow up: IV Status: Completed infusion; IV Intake: 1000ml ak1 Intake: 06:30 IV: 1000ml; Total: 1000ml. ak1 Outcome: 06:43 Discharge ordered by . tw4 07:02 Discharged to home ambulatory, with family. ak1 07:02 Condition: good 07:02 Discharge instructions given to patient, family, Instructed on discharge instructions, follow up and referral plans. medication usage, Demonstrated understanding of instructions, follow-up care, medications, Prescriptions given X 2. 07:04 Patient left the ED. ak1 Signatures: Connie Stewart Brenda RN RN Asha Milan RN RN ed1 Inocencia Brennan RN RN ak1 Abdias Pathak MD MD tw4
[2018-06-17 07:53] LABS: Urine Blood NEGATIVE (NEG); Urine Glucose NEGATIVE (NEG); Urine Protein NEGATIVE (NEG); Urine pH 5.5 (5.0-7.0)
== END 2018-06-17 07:04 | disposition home or self-care (01) ==
LOC: ER 04:12
DX: R10.10 Upper abdominal pain, unspecified (principal); Z88.8 Allergy status to other drugs, medicaments and biological substances; Z88.1 Allergy status to other antibiotic agents; Z91.041 Radiographic dye allergy status
CPT/HCPCS: 36415; 80048; 80076; 81003; 81025; 83690; 85025; J2405; J7030

== ENCOUNTER 2018-10-01 01:05 | Inpatient (IN) | payer BC, SELFPAY ==
[2018-10-01 01:56] LABS: Urine Blood TRACE (NEG); Urine Glucose TRACE (NEG); Urine Protein 1+ (NEG); Urine pH 5.5 (5.0-7.0)
[2018-10-01 01:57] LABS: Urine Bacteria >50 /HPF (<20); Urine Culture Reflex Order REFLEXED; Urine RBC <5 /HPF (NONE SEEN)
[2018-10-01] MEDS ORDERED: MORPHINE 4 MG/ML SYR ONE (01:57)
[2018-10-01] MEDS ORDERED: NA CHLORIDE 0.9% 1,000 ML ONE (01:57)
[2018-10-01] MEDS ORDERED: ONDANSETRON 4 MG/2 ML VIAL ONE (01:57)
[2018-10-01 02:06] LABS: Absolute Lymphocytes (CBC) 4.6 K/uL (0.7-4.9); Absolute Monocytes 0.9 K/uL (0.1-1.3); Absolute Neutrophil 9.7 K/uL (1.8-8.0); Basophils % 0.7 % (0-1.3); Eosinophils % 6.4 % (0-4.4); Hematocrit 46.7 % (36.0-45.0); Lymphocytes % 28.3 % (15.3-44.8); MPV 9.1 fL (7.6-11.3); Monocytes % 5.4 % (3.3-12.3); RBC Red Blood Cell Count 5.45 M/uL (3.86-4.86)
[2018-10-01 02:23] LABS: ALT/SGPT 80 U/L (12-78); AST/SGOT 93 U/L (15-37); Albumin 4.3 g/dL (3.4-5.0); Alkaline Phosphatase 99 U/L (45-117); BUN Blood Urea Nitrogen 13 mg/dL (7-18); Bicarbonate 28 mmol/L (21-32); Bilirubin Direct 0.3 mg/dL (0-0.2); Bilirubin Total 0.8 mg/dL (0.2-1.0); Glucose Level 92 mg/dL (74-106); Lipase 341 U/L (73-393); Potassium 3.5 mmol/L (3.5-5.1); Protein, Total 8.7 g/dL (6.4-8.2); Sodium Level 141 mmol/L (136-145)
--- NOTE | 2018-10-01 03:12 | EDPHYS ---
Physician Documentation [facility] Name: Mia Jauregui Age: 22 yrs Sex: Female : 1995 Arrival Date: 10/01/2018 Time: 01:06 Bed 17 Private MD: ED Physician Naveed Hamilton HPI: 10/01 01:24 This 22 yrs old Female presents to ER via Ambulatory with complaints of right rn side pain/gallbladder. 01:24 The patient presents with abdominal pain in the right upper quadrant. Onset: The rn symptoms/episode began/occurred last night. The symptoms do not radiate. Associated signs and symptoms: Pertinent positives: nausea and vomiting, Pertinent negatives: diarrhea, dysuria, fever, vomiting blood. The symptoms are described as crampy, intermittent, sharp. Modifying factors: The symptoms are alleviated by nothing, the symptoms are aggravated by food, movement, touching the area. Severity of pain: At its worst the pain was moderate in the emergency department the pain is unchanged. The patient has experienced similar episodes in the past. Reports months of upper abd pain, has been told had gallstones, then told didn't have gallstone just sludge, seen by Dr. Bonner and Dr. Martin, had oupt MRCP that was negative, didn't f/u, has pain almost nightly, reports tonight pain again and tired of it, + threw up. No fever. No diarrhea.. 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 - Social history:: Smoking status: Patient uses tobacco products, denies chronic smoking, but will smoke occasionally, Patient uses alcohol, occasionally. - Ebola Screening: : Patient negative for fever greater than or equal to 101.5 degrees Fahrenheit, and additional compatible Ebola Virus Disease symptoms Patient denies exposure to infectious person Patient denies travel to an Ebola-affected area in the 21 days before illness onset. - Family history:: not pertinent. - Hospitalizations: : No recent hospitalization is reported. ROS: 01:24 Constitutional: Negative for fever, chills, and weight loss, Eyes: Negative for injury, rn pain, redness, and discharge, Neck: Negative for injury, pain, and swelling, Cardiovascular: Negative for chest pain, palpitations, and edema, Respiratory: Negative for shortness of breath, cough, wheezing, and pleuritic chest pain, Abdomen/GI: + abd pain and vomiting MS/Extremity: Negative for injury and deformity, Skin: Negative for injury, rash, and discoloration, Neuro: Negative for headache, weakness, numbness, tingling, and seizure. Exam: 01:24 Constitutional: Overweight female, appears uncomfortable, grabbing upper abd rn Head/Face: Normocephalic, atraumatic. Eyes: Pupils equal round and reactive to light, extra-ocular motions intact. Lids and lashes normal. Conjunctiva and sclera are non-icteric and not injected. Cornea within normal limits. Periorbital areas with no swelling, redness, or edema. ENT: MMM Respiratory: No increased work of breathing, no retractions or nasal flaring. Abdomen/GI: soft, + tender RUQ and epigastric region, no peritoneal signs Skin: Warm, dry with normal turgor. Normal color with no rashes, no lesions, and no evidence of cellulitis. MS/ Extremity: Pulses equal, no cyanosis. Neurovascular intact. Full, normal range of motion. Equal circumference. Neuro: Awake and alert, GCS 15 Vital Signs: 01:13 BP 118 / 69; Pulse 88; Resp 18; Temp 98.1(O); Pulse Ox 99% on R/A; Weight 104.33 kg fc (R); Height 5 ft. 3 in. (160.02 cm) (R); Pain 8/10; 02:17 BP 108 / 68; Pulse 84; Resp 16; Pulse Ox 99% on R/A; Pain 4/10; jb4 04:04 BP 122 / 75; Pulse 66; Resp 18; Pulse Ox 100% on R/A; jb4 01:13 Body Mass Index 40.74 (104.33 kg, 160.02 cm) MDM: 01:16 Patient medically screened. rn 03:03 Differential diagnosis: cholecystitis, Cholelithiasis, gastritis, gastroesophageal rn reflux disease, Hepatitis, non-specific abd pain, pancreatitis, Peptic Ulcer Disease. 03:06 Data reviewed: vital signs, nurses notes, lab test result(s), radiologic studies, CT rn scan, and as a result, I will admit patient. Counseling: I had a detailed discussion with the patient and/or guardian regarding: the historical points, exam findings, and any diagnostic results supporting the discharge/admit diagnosis, lab results, radiology results, the need for further work-up and treatment in the hospital. Response to treatment: the patient's symptoms have mildly improved after treatment, and as a result, I will admit patient. Admission orders: after a detailed discussion of the patient's condition and case, the admit orders are written by me. ED course: Pt with no acute findings on CT abdomen. UNable to get u/s tonight due to radiology call out restrictions. Patient with mild improvement after pain medication, + UTI, + elevated WBC. Frequent and prolonged RUQ pain cannot be explained by UTI, most likely poorly functioning gallbladder and needs HIDA scan which she did not get as outpt when Dr. Martin ordered it. Today is first time, however, that LFTs show abnormal levels, pain was more severe and constant today. Will admit for further w/u including HIDA scan, abx for UTI, and anticipate cholecystectomy. Patient has prolonged outpatient workup, partially at her fault due to not completing workup and I discussed this with her, pain is increasing in severity and frequency, thus failure of outpt therapy. . 10/01 01:23 Order name: Basic Metabolic Panel; Complete Time: 02:55 10/01 01:23 Order name: CBC with Diff; Complete Time: 02:55 10/01 01:23 Order name: Hepatic Function; Complete Time: 02:55 10/01 01:23 Order name: Lipase; Complete Time: 02:55 10/01 01:23 Order name: Urine Microscopic Only; Complete Time: 02:00 10/01 01:44 Order name: Urine Dipstick--Ancillary (enter results); Complete Time: 02:00 [facility] 10/01 01:23 Order name: CT Abd/Pelvis - Without Contrast 10/01 01:44 Order name: Urine --Ancillary (enter results); Complete Time: 02:00 [facility] 10/01 02:00 Order name: Urine Culture [facility] 10/01 01:23 Order name: IV Saline Lock; Complete Time: 02:04 rn 10/01 01:23 Order name: Labs collected and sent; Complete Time: 02:04 rn 10/01 01:23 Order name: Urine Test (obtain specimen); Complete Time: 01:44 rn 10/01 01:23 Order name: Urine Dipstick-Ancillary (obtain specimen); Complete Time: 01:44 rn Administered Medications: 01:50 Drug: Zofran 4 mg Route: IVP; Site: left hand; jb4 02:15 Follow up: Response: No adverse reaction; Nausea is decreased jb4 01:55 Drug: morphine 4 mg Route: IVP; Site: left hand; jb4 02:15 Follow up: Response: No adverse reaction; Pain is decreased jb4 02:14 Drug: NS 0.9% 1000 ml Route: IV; Rate: 1000 ml; Site: left hand; jb4 03:15 Follow up: Response: No adverse reaction; IV Status: Completed infusion; IV Intake: jb4 1000ml 03:20 Drug: Cipro 400 mg Volume: 200 ml; Route: IVPB; Infused Over: 60 mins; Site: left hand; jb4 03:39 Follow up: Response: Adverse reaction, Physician notified; IV Status: Order to [facility] discontinue infusion 03:40 Drug: Benadryl 50 mg Route: IVP; Site: left hand; jb4 04:05 Follow up: Response: Marked relief of symptoms jb4 Disposition: 10/01/18 03:12 Hospitalization ordered by Subhash Rascon for Inpatient Admission. Preliminary diagnosis are Disease of gallbladder, unspecified, Urinary tract infection, site not specified, Intractable pain, Failure of outpatient therapy/plan. - Bed requested for Telemetry/MedSurg (Inpatient). - Status is Inpatient Admission. jb4 - Condition is Stable. - Problem is an ongoing problem. - Symptoms have improved. UTI on Admission? Yes Signatures: Dispatcher [employer] [facility] Jodie Smith RN RN fc Nieto, Roman, MD MD rn Garcia, Cindy, RN RN cg Bryson, James, RN RN jb4 Corrections: (The following items were deleted from the chart) 04:15 03:12 Hospitalization Ordered by Subhash Rascon MD for Inpatient Admission. Preliminary diagnosis is Disease of gallbladder, unspecified; Urinary tract infection, site not specified; Intractable pain; Failure of outpatient therapy/plan. Bed requested for Telemetry/MedSurg (Inpatient). Status is Inpatient Admission. Condition is Stable. Problem is an ongoing problem. Symptoms have improved. UTI on Admission? Yes. rn 04:58 04:15 10/01/2018 03:12 Hospitalization Ordered by Subhash Rascon MD for Inpatient jb4 Admission. Preliminary diagnosis is Disease of gallbladder, unspecified; Urinary tract infection, site not specified; Intractable pain; Failure of outpatient therapy/plan. Bed requested for Telemetry/MedSurg (Inpatient). Status is Inpatient Admission. Condition is Stable. Problem is an ongoing problem. Symptoms have improved. UTI on Admission? Yes.
--- NOTE | 2018-10-01 03:12 | ER ---
Nurse's Notes [facility] Name: Mia Jauregui Age: 22 yrs Sex: Female : 1995 Arrival Date: 10/01/2018 Time: 01:06 Bed 17 Private MD: Diagnosis: Disease of gallbladder, unspecified;Urinary tract infection, site not specified;Intractable pain;Failure of outpatient therapy/plan Presentation: 10/01 01:13 Presenting complaint: Patient states: that she is having right upper quad pain and fc knows it is her gallbladder. Hx of gallbladder problems. She saw Kailey and was told to have it removed within a couple of weeks but then decided to see Mario who had her do MRCP 2-3 months ago. Transition of care: patient was not received from another setting of care. Onset of symptoms was October 01, 2018 at 00:30. Risk Assessment: Do you want to hurt yourself or someone else? Patient reports no desire to harm self or others. Initial Sepsis Screen: Does the patient meet any 2 criteria? No. Patient's initial sepsis screen is negative. Does the patient have a suspected source of infection? No. Patient's initial sepsis screen is negative. Care prior to arrival: None. 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 - Social history:: Smoking status: Patient uses tobacco products, denies chronic smoking, but will smoke occasionally, Patient uses alcohol, occasionally. - Ebola Screening: : Patient negative for fever greater than or equal to 101.5 degrees Fahrenheit, and additional compatible Ebola Virus Disease symptoms Patient denies exposure to infectious person Patient denies travel to an Ebola-affected area in the 21 days before illness onset. - Family history:: not pertinent. - Hospitalizations: : No recent hospitalization is reported. Screenin:22 Abuse screen: Denies threats or abuse. Nutritional screening: No deficits noted. fc Tuberculosis screening: No symptoms or risk factors identified. Fall Risk None identified. Assessment: 01:45 General: Appears in no apparent distress. uncomfortable, Behavior is cooperative, jb4 appropriate for age, anxious. Pain: Complains of pain in right upper quadrant Pain radiates to right mid back Pain currently is 10 out of 10 on a pain scale. Neuro: Level of Consciousness is awake, alert, obeys commands, Oriented to person, place, time, situation. Cardiovascular: Patient's skin is warm and dry. Respiratory: Airway is patent Respiratory effort is even, unlabored, Respiratory pattern is regular, symmetrical. GI: Reports upper abdominal pain, nausea. : No signs and/or symptoms were reported regarding the genitourinary system. EENT: No signs and/or symptoms were reported regarding the EENT system. Derm: Skin is intact, Skin is pink, warm \T\ dry. Musculoskeletal: Circulation, motion, and sensation intact. 02:45 Reassessment: Patient appears in no apparent distress at this time. Patient and/or jb4 family updated on plan of care and expected duration. Pain level reassessed. Patient is alert, oriented x 3, equal unlabored respirations, skin warm/dry/pink. Patient states feeling better. 03:39 Reassessment: allergic reaction noted to Cipro, provider notified see [facility] for orders. jb4 03:46 Reassessment: Patient appears in no apparent distress at this time. Patient and/or jb4 family updated on plan of care and expected duration. Pain level reassessed. Patient is alert, oriented x 3, equal unlabored respirations, skin warm/dry/pink. Patient states feeling better. 04:04 Reassessment: symptoms of adverse reaction has improved, pt reports feeling better. no jb4 s/s of distress noted, respirations even and unlabored. A\T\o x 4, significant other at the bedside. 04:50 Reassessment: Patient appears in no apparent distress at this time. Patient is alert, jb4 oriented x 3, equal unlabored respirations, skin warm/dry/pink. Pt transported upstairs with nurse via wheelchair, pt ambulated to wheelchair with steady gait, no s/s of distress or pain noted at this time, pt reports feeling better, no s/s of worsening allergic reaction. developing rash is now gone, pt no longer itching . Vital Signs: 01:13 BP 118 / 69; Pulse 88; Resp 18; Temp 98.1(O); Pulse Ox 99% on R/A; Weight 104.33 kg fc (R); Height 5 ft. 3 in. (160.02 cm) (R); Pain 8/10; 02:17 BP 108 / 68; Pulse 84; Resp 16; Pulse Ox 99% on R/A; Pain 4/10; jb4 04:04 BP 122 / 75; Pulse 66; Resp 18; Pulse Ox 100% on R/A; jb4 01:13 Body Mass Index 40.74 (104.33 kg, 160.02 cm) ED Course: 01:06 Patient arrived in ED. am2 01:13 Arm band placed on Patient placed in an exam room, on a stretcher. fc 01:16 Naveed Hamilton MD is Attending Physician. rn 01:21 Triage completed. fc 01:22 Patient has correct armband on for positive identification. Placed in gown. Bed in low fc position. Call light in reach. Side rails up X 1. Pulse ox on. NIBP on. 01:32 Luiz Keen, JUSTINE is Primary Nurse. jb4 01:50 Initial lab(s) drawn, by ct, sent to lab. Inserted saline lock: 22 gauge in left hand, jb4 using aseptic technique. Blood collected. 02:34 CT Abd/Pelvis - Without Contrast In Process Unspecified. EDMS 02:54 CT completed. Pt tolerated procedure poorly. Patient moved to CT via stretcher. Patient eh moved back from CT. 03:11 Subhash Rascon MD is Hospitalizing Provider. rn 04:50 No provider procedures requiring assistance completed. Patient admitted, IV remains in jb4 place. Administered Medications: 01:50 Drug: Zofran 4 mg Route: IVP; Site: left hand; jb4 02:15 Follow up: Response: No adverse reaction; Nausea is decreased jb4 01:55 Drug: morphine 4 mg Route: IVP; Site: left hand; jb4 02:15 Follow up: Response: No adverse reaction; Pain is decreased jb4 02:14 Drug: NS 0.9% 1000 ml Route: IV; Rate: 1000 ml; Site: left hand; jb4 03:15 Follow up: Response: No adverse reaction; IV Status: Completed infusion; IV Intake: jb4 1000ml 03:20 Drug: Cipro 400 mg Volume: 200 ml; Route: IVPB; Infused Over: 60 mins; Site: left hand; jb4 03:39 Follow up: Response: Adverse reaction, Physician notified; IV Status: Order to jb4 discontinue infusion 03:40 Drug: Benadryl 50 mg Route: IVP; Site: left hand; jb4 04:05 Follow up: Response: Marked relief of symptoms jb4 Intake: 03:15 IV: 1000ml; Total: 1000ml. jb4 Outcome: 03:12 Decision to Hospitalize by Provider. rn 04:50 Admitted to Med/surg accompanied by nurse, via wheelchair, room 206, with chart, Report jb4 called to JUSTINE Luther 04:50 Condition: stable 04:50 Discharge instructions given to patient, family, Instructed on the need for admit, Demonstrated understanding of instructions. 04:58 Patient left the ED. jb4 Signatures: Dispatcher [employer] EDMS Oswald Palacios Felicia RN Naveed Schmitt MD MD rn Bryson, James, RN RN jb4 Raquel Meléndez
[2018-10-01] MEDS ORDERED: CIPROFLOXACIN 400mg IV 400 MG/200 ML BAG IV ONE (03:40)
[2018-10-01] MEDS ORDERED: DIPHENHYDRAMINE 50 MG/ML VIAL ONE (03:52)
--- NOTE | 2018-10-01 04:16 | P.HP ---
Certification for Inpatient Patient admitted to: Inpatient With expected LOS: >2 Midnights Practitioner: I am a practitioner with admitting privileges, knowledge of patient current condition, hospital course, and medical plan of care. Services: Services provided to patient in accordance with Admission requirements found in Title 42 Section 412.3 of the Code of Federal Regulations Patient History Date of Service: 10/01/18 Reason for admission: UTI, possible cholecystitis History of Present Illness: Ms Jauregui is a 22 years old woman with history of recurrent abdominal pain. Her symptoms started about 4 month ago, when she was admitted to this facility, she had an abd US showing possible gallstone, the she had a MRCP which was negative. Her symptoms continued on and off since started, most of the time subside after take Tylenol 3 and Ibuprofen. Last night her pain was more intense , located in RUQ, radiated to epigastrium and back. It was associated with nausea and vomiting. She denied diarrhea, fever or chills. Lab work remarkable for leukocytosis, elevated transaminases and abnormal UA consistent with UTI. She has had burning urination for the last couple of days. Allergies iodine Allergy (Severe, Verified 06/08/18 11:40) Anaphylaxis C-Clor Allergy (Severe, Uncoded 06/08/18 11:40) Anaphylaxis Home medications list reviewed: Yes Home Medications: Codeine/APAP [Tylenol W/Codeine #3 tab] 1 tab PO Q4H PRN #20 tab 06/08/18 Phentermine HCl 15 mg PO DAILY 06/08/18 - Past Medical/Surgical History Diabetic: No -: recurrent abdominal pain - Family History Family History: Reviewed- Non-Contributory - Social History Smoking Status: Current some day smoker Counseled patient to stop smoking for: less than 10 minutes Alcohol use: Yes CD- Drugs: No Caffeine use: Yes Place of Residence: Home Review of Systems 10-point ROS is otherwise unremarkable Physical Examination - Physical Exam General: Alert, In no apparent distress HEENT: Atraumatic, PERRLA, Mucous membr. moist/pink, EOMI, Sclerae nonicteric Neck: Supple, 2+ carotid pulse no bruit, No LAD, Without JVD or thyroid abnormality Respiratory: Clear to auscultation bilaterally, Normal air movement Cardiovascular: Regular rate/rhythm, Normal S1 S2 Gastrointestinal: Normal bowel sounds, Tenderness (RUQ) Musculoskeletal: No tenderness Integumentary: No rashes Neurological: Normal speech, Normal strength at 5/5 x4 extr, Normal tone, Normal affect Lymphatics: No axilla or inguinal lymphadenopathy - Studies Laboratory Data (last 24 hrs) 10/01/18 01:50: WBC 16.4 H, Hgb 15.7 H, Hct 46.7 H, Plt Count 370 10/01/18 01:50: Sodium 141, Potassium 3.5, BUN 13, Creatinine 0.75, Glucose 92, Total Bilirubin 0.8, AST 93 H, ALT 80 H, Alkaline Phosphatase 99, Lipase 341 Assessment and Plan - Problems (Diagnosis) (1) UTI (urinary tract infection) Current Visit: Yes Status: Acute Qualifiers: Urinary tract infection type: acute cystitis Hematuria presence: without hematuria Qualified Code(s): N30.00 - Acute cystitis without hematuria (2) Biliary colic Onset Date: 06/09/18 Current Visit: No Status: Acute - Plan Will admit the patient due to possible cholecystitis and UTI. Will order a HIDA scan, start empiric atibiotic treatment, order IV Cipro and Flagyl. Consult Dr Martin. - Advance Directives Does patient have a Living Will: No Does patient have a Durable POA for Healthcare: No - Code Status/Comfort Care Code Status Assessed: Yes Code Status: Full Code
[2018-10-01] MEDS ORDERED: ACETAMINOPHEN 500 MG TAB PO PRN (05:58)
[2018-10-01] MEDS ORDERED: PIPER/TAZO/NS 3.375gm 3.375 GM/100 ML BAG IVPB SCH ×2 (06:30→12:00)
[2018-10-01] MEDS: NA CHLORIDE 0.9% 1,000 ML IV SCH ×2 (06:34→15:17)
[2018-10-01] MEDS ORDERED: KCL 20 MEQ/100 mL IVPB 20 MEQ/100 ML BAG IV SCH (08:00)
[2018-10-01] MEDS ORDERED: CIPROFLOXACIN 400mg IV 400 MG/200 ML BAG IV SCH (09:00)
--- NOTE | 2018-10-01 09:16 | RAD REPORT ---
EXAM DESCRIPTION: NM - Hepatobiliary System W/ Ph - 10/01/2018 9:10 am CLINICAL HISTORY: Abdominal pain COMPARISON: None. TECHNIQUE: The patient was administered 6.1 mCi Tc99m Choletec. Imaging of the right upper quadrant was performed initially for up to 60 minutes. The patient was administered synthetic CCK over a slow 30 minute infusion. YESENIA measurements were obtained of the gallbladder and an ejection fraction calcu lated. Synthetic CCK dosage was 2.1 mgm. FINDINGS: There is homogeneous uptake of radiopharmaceutical throughout the liver. There is no delay in visualization of the biliary tree or duodenum. Gallbladder visualizes within normal time limits. No measurable gallbladder response to the CCK. Calc ulated ejection fraction was 0%. Patient reports pain rated 2/10 before the examination increasing to 5/10 during CCK. IMPRESSION: Patent cystic duct and patent sphincter of Oddi. No delay in visualization of the gallbl adder, biliary tree, or duodenum. Ejection fraction is 0%. No measurable response to CCK could be identified within the gallbladder. Patient reports pain rated 2/10 before the examination increasing to 5/10 during CCK.
[2018-10-01] MEDS: KETOROLAC 30 MG/ML INJ IV PRN ×2 (09:31→17:26)
[2018-10-01] MEDS: ONDANSETRON 4 MG/2 ML VIAL IV PRN ×2 (09:31→15:16)
--- NOTE | 2018-10-01 09:33 | P.PN ---
Subjective Date of Service: 10/01/18 Primary Care Provider: none; Surgery-Dr. Martin Chief Complaint: UTI, possible cholecystitis Subjective: Other (Patient without significant abdomen pain at this time well controlled with medication) Physical Examination - Vital Signs Temperature: 97.4 F Blood Pressure: 122/75 Pulse: 66 Respirations: 18 Pulse Ox (%): 98 - Physical Exam General: Alert, In no apparent distress, Oriented x3, Cooperative HEENT: Atraumatic Neck: Supple Respiratory: Clear to auscultation bilaterally, Normal air movement Cardiovascular: Normal pulses, Regular rate/rhythm Gastrointestinal: Normal bowel sounds, Soft and benign, Non-distended, No masses , No rebound, No guarding, Tenderness (No pain to the right upper quadrant at this time. Well controlled with medication) Neurological: Normal speech, Normal strength at 5/5 x4 extr, Normal tone, Normal affect - Studies Laboratory Data (last 24 hrs) 10/01/18 01:50: WBC 16.4 H, Hgb 15.7 H, Hct 46.7 H, Plt Count 370 10/01/18 01:50: Sodium 141, Potassium 3.5, BUN 13, Creatinine 0.75, Glucose 92, Total Bilirubin 0.8, AST 93 H, ALT 80 H, Alkaline Phosphatase 99, Lipase 341 Medications List Reviewed: Yes Assessment & Plan Discharge Plan: Home Plan to discharge in: 24 Hours Physician Review Additional Text: Impression: Right upper quadrant abdominal pain, elevated liver function secondary to acute on chronic cholecystitis with gallbladder dyskinesia UTI Obesity, BMI 40.7 Plan: Right upper quadrant abdominal pain, elevated liver function secondary to acute on chronic cholecystitis with gallbladder dyskinesia: Patient has been evaluated as an outpatient by surgery. Patient came into the emergency room last night with continued pain. HIDA scan this morning shows 0% ejection fraction. HIDA scan shows patent cystic duct with patent sphincter of OT. Patient had abdominal ultrasound and MRCP in May of 2018. Ultrasound showed gallstones. MRCP was negative. Will discuss further with surgery. Patient will likely require surgical intervention. Continue IV fluids and IV antibiotic therapy. Will keep the patient NPO for possible surgery later today UTI: Patient with UTI. Will continue with antibiotic therapy. Await urine culture results. Obesity, BMI 40.7: Continue lifestyle modification education. Time Spent Managing Pts Care (In Minutes): 55
--- NOTE | 2018-10-01 10:20 | RAD REPORT ---
EXAM DESCRIPTION: CT - Abdomen Pelvis Wo Contrast - 10/01/2018 6:52 am CLINICAL HISTORY: The patient is 22 years old and is Female; upper abd pain;Abd pain TECHNIQUE: Axial computed tomography images of the abdomen and pelvis without intravenous contrast. Sagittal and coronal reformatted images were created and reviewed. This CT exam was performed usi ng one or more of the following dose reduction techniques: automated exposure control, adjustment o f the mA and/or kV according to patient size, and/or use of iterative reconstruction technique. COMPARISON: MRCP dated 06/16/2018 FINDINGS: LUNG BASES: Unremarkable. No mass. No consolidation. ABDOMEN: LIVER: Unremarkable. GALLBLADDER AND BILE DUCTS: Unremarkable. No calcified stones. No ductal dilation. PANCREAS: Unremarkable. No ductal dilation. SPLEEN: Unremarkable. No splenomegaly. ADRENALS: Unremarkable. No mass. KIDNEYS AND URETERS: Unremarkable. No obstructing stones. No hydronephrosis. STOMACH AND BOWEL: Unremarkable. No obstruction. No mucosal thickening. PELVIS: APPENDIX: The appendix is seen and is within normal limits. BLADDER: The bladder is decompressed. No stones. REPRODUCTIVE: Left ovarian cyst measuring 2.1 cm. ABDOMEN and PELVIS: INTRAPERITONEAL SPACE: Unremarkable. No free air. No significant fluid collection. BONES/JOINTS: No acute fracture. No dislocation. SOFT TISSUES: Unremarkable. VASCULATURE: Unremarkable. No abdominal aortic aneurysm. LYMPH NODES: Unremarkable. No enlarged lymph nodes. IMPRESSION: 1. No acute abdominal or pelvic abnormality. 2. 2.1 cm left ovarian cyst. No follow-up imaging is recommended. Reference: US recommendations based on Radiology 2010 Dec;256(3):943-54; CT/MR recommendations based on J Am Francesco Radiol 2013;10:675-681. Electronically signed by: Ilan Kim DO 10/01/2018 2:49 AM CDT Due to temporary technical issues with the PACS/Fluency reporting system, reports are being signed by the in house radiologist as a courtesy to ensure prompt reporting. The interpreting radiologist is f ursulaly responsible for the content of the report.
[2018-10-01] MEDS: PIPER/TAZO/NS 3.375gm 3.375 GM/100 ML BAG IVPB SCH ×2 (10:54→17:22)
[2018-10-01] MEDS: FAMOTIDINE 20 MG/2 ML VIAL IV SCH (20:33)
[2018-10-02] MEDS: NA CHLORIDE 0.9% 1,000 ML IV SCH ×2 (01:32→11:58)
[2018-10-02] MEDS: PIPER/TAZO/NS 3.375gm 3.375 GM/100 ML BAG IVPB SCH ×3 (01:32→16:49)
[2018-10-02] MEDS: KETOROLAC 30 MG/ML INJ IV PRN ×2 (04:11→09:15)
[2018-10-02 05:36] LABS: Absolute Lymphocytes (CBC) 3.1 K/uL (0.7-4.9); Absolute Monocytes 0.5 K/uL (0.1-1.3); Absolute Neutrophil 5.3 K/uL (1.8-8.0); Basophils % 0.7 % (0-1.3); Hematocrit 40.4 % (36.0-45.0); Lymphocytes % 31.4 % (15.3-44.8); MPV 9.2 fL (7.6-11.3); Monocytes % 5.6 % (3.3-12.3); RBC Red Blood Cell Count 4.68 M/uL (3.86-4.86)
[2018-10-02 05:52] LABS: ALT/SGPT 187 U/L (12-78); AST/SGOT 78 U/L (15-37); Albumin 3.1 g/dL (3.4-5.0); Alkaline Phosphatase 87 U/L (45-117); BUN Blood Urea Nitrogen 13 mg/dL (7-18); Bicarbonate 28 mmol/L (21-32); Bilirubin Total 0.7 mg/dL (0.2-1.0); Glucose Level 87 mg/dL (74-106); Magnesium 2.1 mg/dL (1.8-2.4); Potassium 4.1 mmol/L (3.5-5.1); Protein, Total 6.7 g/dL (6.4-8.2); Sodium Level 143 mmol/L (136-145)
--- NOTE | 2018-10-02 08:35 | P.PN ---
Subjective Date of Service: 10/02/18 Primary Care Provider: none; Surgery-Dr. Martin Chief Complaint: UTI, possible cholecystitis Subjective: Other (Pain improved. Patient NPO for surgery today.) Physical Examination - Vital Signs Temperature: 97.3 F Blood Pressure: 98/51 Pulse: 60 Respirations: 14 Pulse Ox (%): 94 - Physical Exam General: Alert, In no apparent distress, Oriented x3, Cooperative HEENT: Atraumatic Neck: Supple Respiratory: Clear to auscultation bilaterally, Normal air movement Cardiovascular: Normal pulses, Regular rate/rhythm Gastrointestinal: Normal bowel sounds, Soft and benign, Non-distended, No tenderness, No masses, No rebound, No guarding Musculoskeletal: No erythema, No tenderness, No warmth Integumentary: No erythema, No warmth, No cyanosis Neurological: Normal speech, Normal strength at 5/5 x4 extr, Normal tone, Normal affect - Studies Medications List Reviewed: Yes Assessment & Plan Discharge Plan: Home Plan to discharge in: 24 Hours Physician Review Additional Text: Impression: Right upper quadrant abdominal pain, elevated liver function secondary to acute on chronic cholecystitis with gallbladder dyskinesia UTI Obesity, BMI 40.7 Plan: Right upper quadrant abdominal pain, elevated liver function secondary to acute on chronic cholecystitis with gallbladder dyskinesia: Patient NPO at this time. Patient to have laparoscopic cholecystectomy today. HIDA scan and previous gallbladder ultrasound/MRCP reviewed. Case discussed with surgery yesterday. Await findings from surgery. Likely discharge in the next 24 hr. If the patient is still here tomorrow I will turn the service over to Dr. Gimenez. I will go over the plan of care with her. UTI: Patient with UTI. Continue antibiotic treatment. Await urine culture results. If patient discharged today patient will continue with antibiotic coverage. Obesity, BMI 40.7: Continue lifestyle modification education. Time Spent Managing Pts Care (In Minutes): 55
[2018-10-02] MEDS: FAMOTIDINE 20 MG/2 ML VIAL IV SCH (09:14)
[2018-10-02] MEDS ORDERED: PROPOFOL 200 MG/20 ML VIAL IV ONE (10:47)
[2018-10-02] MEDS ORDERED: LIDOCAINE 1% MPF 5 ML VIAL ONE (10:47)
[2018-10-02] MEDS ORDERED: ROCURONIUM 50 MG/5 ML VIAL IV ONE (10:47)
[2018-10-02] MEDS ORDERED: FENTANYL CITR 100 MCG/2 ML ONE ×2 (10:47→13:52)
[2018-10-02] MEDS ORDERED: MIDAZOLAM HCL 2 MG/2 ML INJ ONE (10:47)
--- NOTE | 2018-10-02 14:01 | CON ---
Diagnoses: Symptomatic cholelithiasis, acute cholecystitis, urinary tract infection, intractable rig ht upper quadrant pain. History Of Present Illness: This is the case of a 22-year-old patient with history of abdominal pain , recurrent, it has been liked that for at least 4 months. She has been trying to modify her diet bu t it keep coming back, it is mainly postprandial, start in the epigastric, go to the right upper quad rant and then to her back. She denies any dysuria, hematuria, hematochezia, or melena. Denies any r ecent traveling out of the country. Denies any family member sick at home. She has been trying to m odify her diet but it is still coming back. She was admitted to the hospital, had extensive workup i ncluding ultrasound and CAT scan, HIDA scan and found to have biliary dyskinesia, acute cholecystitis , symptomatic cholelithiasis and a surgical consult was obtained for cholecystectomy. Allergies: IODINE, CECLOR. Home Medications: Include Tylenol No. 3. Medical History: Abdominal pain same. Social History: She does not smoke every day just occasionally. She drink alcohol just occasionally , beer. Family History: Noncontributory. Review of Systems: Ten points, otherwise unremarkable. Physical Examination: GENERAL: The patient is awake and alert. HEENT: Pupils are equal and reactive, anicteric. Neck: Supple. Chest: Clear. Abdomen: Soft and depressible. The patient has right upper quadrant tenderness with Leblanc sign pos itive. Guarding in the right upper quadrant. Breasts: Deferred. Rectal: Deferred. Pelvic: Deferred. Extremities: Good capillary refill. Imaging: The patient had a CAT scan done on 13 of this month and it was read as 2.1 left ovarian cys t. The patient knows about that. The patient had an ultrasound done a few months ago that showing g allstones. She had an MRCP done previously read by Dr. Jones as no common duct stone or biliary tr ee abnormalities. She had a HIDA scan done yesterday that shows patent cystic duct, patent sphincter of Oddi, nodular visualization of the gallbladder. Ejection fraction of 0 and CCK injection increas ed the pain and making her symptoms. Assessment: A 22-year-old patient, with biliary colic, symptomatic cholelithiasis, acute cholecystit is, biliary dyskinesia, intractable abdominal pain. Dealing with that for several months. Multiple ER visit, multiple admissions to the hospital. The primary doctor evaluated her with suspect acute c holecystitis and cholelithiasis. So, they are asking for cholecystectomy. The patient also want cho lecystectomy done during this admission. So, we explained to her the benefits, alternatives, and ris ks of laparoscopic, possible open cholecystectomy, which include but are not limited to infection, bl eeding, damage to adjacent structures, anesthesia complication, choledocholithiasis, bile leak, pancr eatitis, NE, and even . She also understands this may not relieve her symptoms. She might need more than one surgical intervention. She understood and she will sign a consent. The OR was notifi ed. SANJU/JUNG Voice ID: [id number] Report ID: [id number]
--- NOTE | 2018-10-02 14:25 | P.BOP ---
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
[2018-10-02] MEDS ORDERED: Mastisol Adhesive Liq ONE (14:33)
[2018-10-02] MEDS ORDERED: GLYCOPYRROLATE 0.2 MG/ML SYR ONE (14:35)
[2018-10-02] MEDS: MEPERIDINE HCL 50 MG/ML AMP ONE ×2 (14:44→14:54)
[2018-10-02] MEDS ORDERED: HYDROCODONE/APAP 7.5/325 MG TAB PO PRN (15:03)
[2018-10-02] MEDS ORDERED: NA CHLORIDE 0.9% 1,000 ML ONE (15:03)
--- NOTE | 2018-10-02 15:04 | P.DS ---
Admission Date: 10/01/18 Discharge Date: 10/02/18 Primary Care Provider: none; Surgery-Dr. Martin Disposition: ROUTINE DISCHARGE Discharge Condition: GOOD Reason for Admission: UTI, possible cholecystitis Consultations: Surgery-Dr. Martin Procedures: Surgery- Lap. cholecystectomy Medical problem list: Right upper quadrant abdominal pain, elevated liver function secondary to acute on chronic cholecystitis with gallbladder dyskinesia UTI Obesity, BMI 40.7 Brief History of Present Illness: 22-year-old female presented to emergency room with right upper quadrant abdominal pain. Patient been evaluated as an outpatient for cholecystitis. This included gallbladder ultrasound and MRCP. The patient presented with worsening symptoms. Patient was admitted for further treatment. Hospital Course: Patient presented with right upper quadrant abdominal pain. This was related to acute on chronic cholecystitis. Patient was admitted due to continued worsening pain. Patient was seen and evaluated by surgery. HIDA scan perform showed gallbladder dyskinesia. Surgery performed laparoscopic cholecystectomy. Patient did well after surgery. Patient discharged home. She will follow up with surgery within 1 week. No heavy lifting, pushing or pulling. Patient was given pain medication at discharge. Patient also found to have UTI. Urine cultures pending at discharge. Patient given Bactrim DS 1 pill twice daily for 7 days. Urine culture can be followed up by surgery. Vital Signs/Physical Exam: Temp Pulse Resp BP Pulse Ox 97.7 F 54 15 117/65 96 10/02/18 12:00 10/02/18 14:52 10/02/18 14:52 10/02/18 14:52 10/02/18 12:00 General: Alert, In no apparent distress, Oriented x3, Cooperative HEENT: Atraumatic Neck: Supple Respiratory: Clear to auscultation bilaterally, Normal air movement Cardiovascular: Normal pulses, Regular rate/rhythm Gastrointestinal: Normal bowel sounds, Soft and benign, Non-distended Neurological: Normal speech, Normal strength at 5/5 x4 extr, Normal tone Laboratory Data at Discharge: WBC 9.8 K/uL (4.3-10.9) D 10/02/18 05:13 Hgb 13.6 g/dL (12.0-15.0) 10/02/18 05:13 Hct 40.4 % (36.0-45.0) 10/02/18 05:13 Plt Count 297 K/uL (152-406) 10/02/18 05:13 Sodium 143 mmol/L (136-145) 10/02/18 05:13 Potassium 4.1 mmol/L (3.5-5.1) 10/02/18 05:13 BUN 13 mg/dL (7-18) 10/02/18 05:13 Creatinine 0.77 mg/dL (0.55-1.3) 10/02/18 05:13 Glucose 87 mg/dL (74-106) 10/02/18 05:13 Magnesium 2.1 mg/dL (1.8-2.4) 10/02/18 05:13 Total Bilirubin 0.7 mg/dL (0.2-1.0) 10/02/18 05:13 AST 78 U/L (15-37) H 10/02/18 05:13 ALT 187 U/L (12-78) H D 10/02/18 05:13 Alkaline Phosphatase 87 U/L (45-117) 10/02/18 05:13 Lipase 341 U/L (73-393) 10/01/18 01:50 Home Medications: Codeine/APAP [Tylenol W/Codeine #3 tab] 1 tab PO Q4HP PRN #30 tab 10/02/18 Ondansetron HCl [Zofran] 4 mg PO Q4H PRN #15 tablet 10/02/18 Sulfamethoxazole/Trimethoprim [Bactrim Ds Tablet] 1 each PO BID #14 tablet 10/02 New Medications: Codeine/APAP [Tylenol W/Codeine #3 tab] 1 tab PO Q4HP PRN #30 tab PRN Reason: Pain Ondansetron HCl [Zofran] 4 mg PO Q4H PRN #15 tablet PRN Reason: Nausea / Vomiting Sulfamethoxazole/Trimethoprim [Bactrim Ds Tablet] 1 each PO BID #14 tablet Patient Discharge Instructions: Keep area dry for 48h then may shower. Keep sterile strips intact. No heavy lifting, pushing or pulling. Follow up with surgery as directed. Provide education on laparoscopic cholecystectomy and UTI. Diet: AHA Activity: No lifting more than 10 lbs Followup: Link Martin MD [ACTIVE - CAN ADMIT] - 1 Week Time spent managing pt's care (in minutes): 55
[2018-10-02] MEDS ORDERED: MEPERIDINE HCL 50 MG/ML AMP ONE (15:18)
[2018-10-02] MEDS: MORPHINE 2 MG/ML SYR IV PRN ×2 (16:49→18:11)
--- NOTE | 2018-10-03 01:14 | OP ---
Date of Procedure: 10/02/2018 Surgeon: Link Martin MD Side Guider: JACK Barajas. Preoperative Diagnoses: Acute cholecystitis, symptomatic cholelithiasis, biliary dyskinesia, urinary tract infection. Postoperative Diagnoses: Acute cholecystitis, symptomatic cholelithiasis, biliary dyskinesia, urinar y tract infection. Procedures Performed: Laparoscopic cholecystectomy. Specimen: Gallbladder. Anesthesia: General plus local. Indications: This is a case of a 22-year-old patient with acute cholecystitis, symptomatic cholelith iasis, biliary dyskinesia, intractable abdominal pain. I fully explained the options for laparoscopi c, possible open, cholecystectomy with benefits, alternatives, and risks including but not limited to infection, bleeding, damage to adjacent structures, anesthesia complication, choledocholithiasis, bi le leak, pancreatitis, [place], and even . She also understands this might not relieve any symptoms and she might need more than one surgical intervention. She understood, signed a consent. Description Of Procedure: The patient was brought to the operating room, placed in supine position. Anesthesia was done without complication. Abdominal area was prepped and draped in a sterile fashio n. Marcaine 0.5% was injected for local anesthetic, followed by sharp incision of the skin in the in fraumbilical region. Incision was carried down to fascia, which was opened under direct vision. Per itoneum was encountered, opened under direct vision. Vicryl #1 placed on each side of the fascia. H asson trocar was carefully introduced. Pneumoperitoneum was obtained. I placed 3 more trocars, 5 mm each one of them, 1 in the epigastric area and 2 in the right upper quadrant, using the same techniq ue, which consisted of local anesthetic, sharp incision of the skin, and introduction of the trocars under direct vision. This allowed me to put a grasper in the fundus of the gallbladder where it was so distended and edematous that I had to deflate the area before putting the endo needle under direct visualization and aspirate the content. Needle was removed under direct visualization. This allowe d me to put a grasper in the fundus of the gallbladder, another grasper in the infundibulum, retracte d the gallbladder in the inferolateral fashion exposing the triangle of Calot and obtaining critical view of safety. Cystic duct and cystic artery were clearly isolated and freed circumferentially, and a connection between those and the gallbladder were clearly identified. I proceeded to ligate those by using at least 1 clip distal and 3 clips proximal and ligation in the middle. Same was done with the cystic artery. No bile leak. No bleeding. The gallbladder was removed from liver using Bovie cauterizer and removed from the abdominal cavity using EndoCatch through the umbilical incision. The area was inspected once again. Clips were intact. No bile leak. No bleeding. At that moment, I p roceeded to remove the trocars under direct vision. Deflated the pneumoperitoneum. Closed the fasci a with #1 Vicryl. Irrigated subcu tissues, closed that with 3-0 chromic and skin in a subcuticular f ashion with Steri-Strips on top. Sponge count and instrument counts were correct. The patient maryan ated the procedure well. The patient was sent to recovery in stable condition. SANJU/JUNG Voice ID: [id number] Report ID: [id number]
--- NOTE | 2018-10-03 01:14 | DS ---
Date of Discharge: 10/02/2018 Discharge Instructions: If she is able to tolerate diet and she wants to go home tonight, then she m ay be able to do that with the conditions that she keep the area dry for 48 hours, then may shower, k eep Steri-Strips intact. To take her antibiotics not only for the acute cholecystitis but also for t he UTI. No heavy lifting. To follow up in my office in 1 week, call for appointment on [phone]. O frances, she is under the service of Dr. Melvin; he has to agree with this and also make sure she is tolerating diet. Otherwise, we will send her home tomorrow. SANJU/JUNG Voice ID: [id number] Report ID: [id number]
== END 2018-10-02 20:45 | disposition home or self-care (01) | DRG 418 ==
LOC: ER 01:05 → 2ND 03:59
PROVIDERS: ADMIT Internal Medicine; ATTEND Family Medicine
PROC: 0FT44ZZ Resection of Gallbladder, Percutaneous Endoscopic Approach (ICD-10-PCS; principal; 2018-10-02 12:30)
DX: K80.00 Calculus of gallbladder with acute cholecystitis without obstruction (principal); N39.0 Urinary tract infection, site not specified; Z68.41 Body mass index [BMI] 40.0-44.9, adult; F17.210 Nicotine dependence, cigarettes, uncomplicated; E66.9 Obesity, unspecified
CPT/HCPCS: 36415; 74176; 78227; 80048; 80053; 80076; 81003; 81015; 81025; 83690; 83735; 85025; 87077; 87086; 87088; 87186; 88304; 96361; 96365; 96375; 99285; A9537; J0744; J2175; J2250; J2270; J2405; J2543; J2704; J2805; J3010; J7030